=== PATIENT | female | born 1935 | race Two or more races ===

== ENCOUNTER 2019-09-07 08:03 | Emergency (ER) | payer OTHER ==
[~2019-09-07] VITALS: Ht 160 cm; Wt 75.3 kg
[~2019-09-07 08:03] MED LIST: CRESTOR10 MG
[2019-09-07] MEDS ORDERED: ATORVASTATIN CA10 MG PO (08:16)
== END 2019-09-07 16:41 | disposition home or self-care (01) ==
LOC: ER 08:03
DX: R05 Cough (principal)

== ENCOUNTER 2020-05-16 09:38 | Inpatient (IN) | payer OTHER ==
[~2020-05-16] VITALS: Ht 165.1 cm; Wt 77.1 kg
[~2020-05-16 09:38] MED LIST changes: +ATORVASTATIN CA10 MG PO
[2020-05-23] MEDS ORDERED: AMLODIPINE BESY10 MG PO (09:40)
[2020-05-23] MEDS ORDERED: LIPITOR40 MG PO (09:40)
[2020-05-23] MEDS ORDERED: VITAMIN C500 M1 PO (09:41)
[2020-05-23] MEDS ORDERED: ZINC SULFATE220 M2 PO (09:41)
[2020-05-23] MEDS ORDERED: MELATONIN5 M2 PO (09:41)
== END 2020-05-23 14:31 | disposition home health service (06) | DRG 177 ==
LOC: ER 09:38 → MEDJ 22:13
PROVIDERS: ADMIT Internal Medicine; ATTEND Internal Medicine
PROC: 3E0F7SF Introduction of Other Gas into Respiratory Tract, Via Natural or Artificial Opening (ICD-10-PCS; principal; 2020-05-17)
PROC: 4A12X4Z Monitoring of Cardiac Electrical Activity, External Approach (ICD-10-PCS; 2020-05-17)
PROC: 4A033R1 Measurement of Arterial Saturation, Peripheral, Percutaneous Approach (ICD-10-PCS; 2020-05-17)
DX: U07.1 COVID-19 (principal); J12.89 Other viral pneumonia; J45.901 Unspecified asthma with (acute) exacerbation; C34.90 Malignant neoplasm of unspecified part of unspecified bronchus or lung; N39.0 Urinary tract infection, site not specified; J44.9 Chronic obstructive pulmonary disease, unspecified; E78.5 Hyperlipidemia, unspecified; R09.02 Hypoxemia; B96.20 Unspecified Escherichia coli [E. coli] as the cause of diseases classified elsewhere; Z53.29 Procedure and treatment not carried out because of patient's decision for other reasons; K59.00 Constipation, unspecified

== ENCOUNTER 2020-07-12 22:01 | Emergency (ER) | payer OTHER ==
[~2020-07-12] VITALS: Ht 157.5 cm; Wt 65.8 kg
[~2020-07-12 22:01] MED LIST changes: +AMLODIPINE BESY10 MG PO; +LIPITOR40 MG PO; +MELATONIN5 M2 PO; +VITAMIN C500 M1 PO; +ZINC SULFATE220 M2 PO
[2020-07-13] MEDS ORDERED: BUDESONIDE0.5 MG/2 M IH (02:18)
== END 2020-07-13 02:40 | disposition home or self-care (01) ==
LOC: ER 22:01
DX: J45.998 Other asthma (principal)

== ENCOUNTER 2021-06-16 11:30 | Emergency (ER) | payer OTHER ==
[~2021-06-16] VITALS: Ht 162.6 cm; Wt 50.8 kg
[~2021-06-16 11:30] MED LIST changes: +BUDESONIDE0.5 MG/2 M IH
[2021-06-16] MEDS ORDERED: HORIZANT300 MG (11:48)
[2021-06-16] MEDS ORDERED: PREGABALIN25 MG PO (11:48)
[2021-06-16] MEDS ORDERED: DICLOFENAC SODI75 MG PO (12:09)
== END 2021-06-16 12:52 | disposition home or self-care (01) ==
LOC: ER 11:30
DX: M25.512 Pain in left shoulder (principal)

== ENCOUNTER 2021-06-26 12:53 | Emergency (ER) | payer OTHER ==
[~2021-06-26] VITALS: Ht 162.6 cm; Wt 49.9 kg
[~2021-06-26 12:53] MED LIST changes: +DICLOFENAC SODI75 MG PO; +HORIZANT300 MG; +PREGABALIN25 MG PO
[2021-06-26] MEDS ORDERED: KETO10TA2 PO (17:30)
[2021-06-26] MEDS ORDERED: MEDROLPACK PO (17:30)
[2021-06-26] MEDS ORDERED: NORFLEX100MG PO (17:30)
[2021-06-26] MEDS ORDERED: SURFAK240 M1 PO (17:58)
== END 2021-06-26 19:32 | disposition home or self-care (01) ==
LOC: ER 12:53
DX: M62.838 Other muscle spasm (principal); M25.512 Pain in left shoulder; M25.511 Pain in right shoulder

== ENCOUNTER 2022-02-24 14:07 | Inpatient (IN) | payer OTHER ==
[~2022-02-24] VITALS: Ht 152.4 cm; Wt 56.7 kg
[~2022-02-24 14:07] MED LIST changes: +KETO10TA2 PO; +MEDROLPACK PO; +NORFLEX100MG PO; +SURFAK240 M1 PO
--- NOTE | 2022-02-24 14:11 | NUR ---
PACIENTE REFIERE CAIDA EN LA CASA Y SE LACERO HOLDEN BRAZO IZQUIERDA. ESPOSO REFIERE ESPOSA TIENE PIEL DE CEBOLLA. LA CAIDA FUE EL RAMESH DE RICKY.
[2022-02-25] MEDS ORDERED: RESTORA RX CAP1 EACH (07:57)
[2022-02-25] MEDS ORDERED: FAMOTIDINE20 MG (07:58)
[2022-02-25] MEDS ORDERED: DEXAMETHASONE4 MG (07:58)
[2022-03-01] MEDS ORDERED: FAMOTIDINE20 MG PO (15:50)
[2022-03-01] MEDS ORDERED: HORIZANT300 MG PO (15:50)
[2022-03-01] MEDS ORDERED: SURFAK240 M1 PO (15:50)
[2022-03-01] MEDS ORDERED: RESTORA RX CAP1 EACH PO (15:50)
[2022-03-01] MEDS ORDERED: AMLODIPINE BESY10 MG PO (15:50)
[2022-03-01] MEDS ORDERED: TRAMADOL HCL50 MG PO (15:50)
[2022-03-01] MEDS ORDERED: DICLOFENAC SODI75 MG PO (15:50)
== END 2022-03-01 17:27 | disposition home or self-care (01) | DRG 641 ==
LOC: ER 14:07 → MEDJ 20:46
PROVIDERS: ADMIT Internal Medicine Hematology & Oncology; ATTEND Internal Medicine Hematology & Oncology
PROC: 06HM33Z Insertion of Infusion Device into Right Femoral Vein, Percutaneous Approach (ICD-10-PCS; principal; 2022-02-26)
DX: E86.0 Dehydration (principal); R64 Cachexia; C34.11 Malignant neoplasm of upper lobe, right bronchus or lung; C78.00 Secondary malignant neoplasm of unspecified lung; C79.72 Secondary malignant neoplasm of left adrenal gland; C79.51 Secondary malignant neoplasm of bone; C79.2 Secondary malignant neoplasm of skin; E44.0 Moderate protein-calorie malnutrition; G89.3 Neoplasm related pain (acute) (chronic); S50.812A Abrasion of left forearm, initial encounter; S50.811A Abrasion of right forearm, initial encounter; I10 Essential (primary) hypertension; Z20.822 Contact with and (suspected) exposure to COVID-19